=== PATIENT | female | born 1985 | race Caucasian/White ===

== ENCOUNTER 2017-10-08 05:21 | Inpatient (IN) | payer OTHER ==
[~2017-10-08] VITALS: Ht 170.2 cm; Wt 68.0 kg
[~2017-10-08 05:21] MED LIST: INTESTINEX1 CAP PO
[2017-10-14] MEDS ORDERED: FLAGYL500MG PO (21:01)
[2017-10-14] MEDS ORDERED: CIPRO500 MG PO (21:01)
[2017-10-14] MEDS ORDERED: DELZICOL400 M1 PO (21:03)
== END 2017-10-14 21:10 | disposition home or self-care (01) | DRG 385 ==
LOC: ER 05:21 → MEDI 20:12 → SURH 10-09 17:36
PROC: BW21Y0Z Computerized Tomography (CT Scan) of Abdomen and Pelvis using Other Contrast, Unenhanced and Enhanced (ICD-10-PCS; 2017-10-08)
PROC: 8E0ZXY6 Isolation (ICD-10-PCS; 2017-10-09)
PROC: 0DBM8ZX Excision of Descending Colon, Via Natural or Artificial Opening Endoscopic, Diagnostic (ICD-10-PCS; principal; 2017-10-12)
PROC: 0DBL8ZX Excision of Transverse Colon, Via Natural or Artificial Opening Endoscopic, Diagnostic (ICD-10-PCS; 2017-10-12)
PROC: 0DBN8ZX Excision of Sigmoid Colon, Via Natural or Artificial Opening Endoscopic, Diagnostic (ICD-10-PCS; 2017-10-12)
PROC: 0DBP8ZX Excision of Rectum, Via Natural or Artificial Opening Endoscopic, Diagnostic (ICD-10-PCS; 2017-10-12)
PROC: B43 Imaging, Lower Arteries, Magnetic Resonance Imaging (MRI) (ICD-10-PCS; 2017-10-12)
DX: K51.511 Left sided colitis with rectal bleeding (principal); K55.031 Focal (segmental) acute (reversible) ischemia of large intestine; E86.0 Dehydration
CPT/HCPCS: 74185

== ENCOUNTER 2018-02-09 12:20 | Outpatient (CLI) | payer OTHER ==
[~2018-02-09 12:20] MED LIST changes: +CIPRO500 MG PO; +DELZICOL400 M1 PO; +FLAGYL500MG PO
== END 2018-02-09 12:29 | disposition home or self-care (01) ==
LOC: TOM 12:20
DX: R10.32 Left lower quadrant pain (principal); R19.7 Diarrhea, unspecified; K62.7 Radiation proctitis

== ENCOUNTER → 2019-04-08 | Emergency (ER) | payer OTHER ==
[~2019-04-08] VITALS: Ht 170.2 cm; Wt 68.0 kg
[~2019-04-08] MED LIST changes: +MEDROLPACK PO; +MUCINEX DM ER1 EAC1 PO; +PROMETH-CODEIN 65 ML PO; +SYMBICORT 16010.2 GM IH; +TESSALON PERLE100 M1 PO; +ZITHROMAX500 MG PO
== END | disposition home or self-care (01) ==
LOC: ER 20:34
DX: J06.9 Acute upper respiratory infection, unspecified (principal); R07.89 Other chest pain

== ENCOUNTER 2022-05-17 10:56 | Outpatient (CLI) | payer OTHER | END 2022-05-17 12:50 | disposition home or self-care (01) | LOC: PRENATAL 10:56 | PROVIDERS: ATTEND Obstetrics & Gynecology Maternal & Fetal Medicine | DX: O36.80X0 Pregnancy with inconclusive fetal viability, not applicable or unspecified (principal); O09.519 Supervision of elderly primigravida, unspecified trimester; Z36.0 Encounter for antenatal screening for chromosomal anomalies; Z3A.14 14 weeks gestation of pregnancy ==

== ENCOUNTER 2022-06-30 12:48 | Outpatient (CLI) | payer OTHER | END 2022-06-30 14:04 | disposition home or self-care (01) | LOC: PRENATAL 12:48 | PROVIDERS: ATTEND Obstetrics & Gynecology Maternal & Fetal Medicine | DX: O35.9XX0 Maternal care for (suspected) fetal abnormality and damage, unspecified, not applicable or unspecified (principal); O35.3XX0 Maternal care for (suspected) damage to fetus from viral disease in mother, not applicable or unspecified; O09.519 Supervision of elderly primigravida, unspecified trimester; D68.69 Other thrombophilia; Z3A.20 20 weeks gestation of pregnancy ==

== ENCOUNTER 2022-09-16 13:35 | Outpatient (CLI) | payer OTHER | END 2022-09-16 15:39 | disposition home or self-care (01) | LOC: PRENATAL 13:35 | PROVIDERS: ATTEND Obstetrics & Gynecology Maternal & Fetal Medicine | DX: O35.9XX0 Maternal care for (suspected) fetal abnormality and damage, unspecified, not applicable or unspecified (principal); O35.3XX0 Maternal care for (suspected) damage to fetus from viral disease in mother, not applicable or unspecified; O34.219 Maternal care for unspecified type scar from previous cesarean delivery; Z3A.34 34 weeks gestation of pregnancy ==

== ENCOUNTER 2022-10-21 21:49 | Inpatient (IN) | payer OTHER ==
[~2022-10-21] VITALS: Ht 170.2 cm; Wt 92.1 kg
[2022-10-21] MEDS ORDERED: LOVENOX40 MG/0.4 SUBCUTANEO (22:13)
[2022-10-21] MEDS ORDERED: PRENATAL TABLE1 EAC1 PO (22:13)
== END 2022-10-25 19:11 | disposition home or self-care (01) | DRG 807 ==
LOC: LDR 21:49 → OB/GYN 21:49
PROVIDERS: ADMIT Student in an Organized Health Care Education/Training Program; ATTEND Student in an Organized Health Care Education/Training Program
PROC: 4A1HXCZ Monitoring of Products of Conception, Cardiac Rate, External Approach (ICD-10-PCS; 2022-10-21)
PROC: 10E0XZZ Delivery of Products of Conception, External Approach (ICD-10-PCS; principal; 2022-10-22)
PROC: 0UQG7ZZ Repair Vagina, Via Natural or Artificial Opening (ICD-10-PCS; 2022-10-22)
DX: O71.4 Obstetric high vaginal laceration alone (principal); Z37.0 Single live birth; Z3A.37 37 weeks gestation of pregnancy; Z20.822 Contact with and (suspected) exposure to COVID-19